=== PATIENT | male | born 1995 | race African-American/Black ===

== ENCOUNTER 2017-02-27 03:11 | Emergency (ER) | payer MEDICAID, OTHER ==
[~2017-02-27] VITALS: Ht 188 cm; Wt 72.0 kg
[~2017-02-27 03:11] MED LIST: CARB200T PO; KEPP500 PO
[2017-02-27 03:20] VITALS: BP 140/88
== END 2017-02-27 07:13 | disposition left against medical advice (07) ==
LOC: ER 03:11
DX: Z53.21 Procedure and treatment not carried out due to patient leaving prior to being seen by health care provider (principal)

== ENCOUNTER 2017-03-26 11:32 | Emergency (ER) | payer OTHER ==
[~2017-03-26] VITALS: Ht 165.1 cm; Wt 69.0 kg
[2017-03-26] MEDS ORDERED: SODIUM CHLORIDE 0.9% 1,000 ML IV ONE (14:00)
[2017-03-26 14:28] LABS: BASOPHILS % 0.7 % (0.0-2.0); HEMOGLOBIN. 12.1 g/dL (14.0-18.0); LYMPHOCYTES % 50.2 % (20.0-50.0); MEAN CORPUSCULAR HEMOGLOBIN 28.1 pg (28.0-32.0); MEAN PLATELET VOLUME 8.4 fl (7.4-10.4); MONOCYTES % 12.4 % (2.0-8.0); NEUTROPHILS % 34.7 % (40.0-76.0); PLATELET 168 x1000/uL (130-400); RED BLOOD CELL COUNT 4.31 mill/uL (4.7-6.1); RED CELL DISTRIBUTION WIDTH 15.1 % (11.6-14.6)
[2017-03-26 14:41] LABS: CARBON DIOXIDE 32 mEq/L (21-32); CHLORIDE 106 mEq/L (98-107)
[2017-03-26 15:08] LABS: CLARITY URINE CLOUDY (CLEAR); COLOR URINE YELLOW (YELLOW); GLUCOSE URINE NEGATIVE (NEGATIVE); KETONES URINE NEGATIVE (NEGATIVE); LEUKOCYTE ESTERASE URINE NEGATIVE (NEGATIVE); NITRITE URINE NEGATIVE (NEGATIVE); OCCULT BLOOD URINE NEGATIVE (NEGATIVE); PROTEIN URINE NEGATIVE (NEGATIVE); SPECIFIC GRAVITY URINE 1.022 (1.005-1.030)
[2017-03-26 15:20] LABS: *AMPHETAMINES SCREEN URINE NEGATIVE (NEGATIVE); *BARBITURATES SCREEN URINE NEGATIVE (NEGATIVE); *BENZODIAZEPINES SCREEN URINE NEGATIVE (NEGATIVE); *COCAINE SCREEN URINE NEGATIVE (NEGATIVE); CANNABINOID URINE SCREEN PRESUMTIVE POSITIVE (NEGATIVE); METHADONE URINE SCREEN NEGATIVE (NEGATIVE); OPIATES URINE SCREEN NEGATIVE (NEGATIVE); PHENCYCLIDINE URINE SCREEN NEGATIVE (NEGATIVE)
[2017-03-26 17:10] VITALS: BP 122/81
== END 2017-03-26 17:13 | disposition home or self-care (01) ==
LOC: ER 13:34
DX: R55 Syncope and collapse (principal); G40.909 Epilepsy, unspecified, not intractable, without status epilepticus; I10 Essential (primary) hypertension; E78.00 Pure hypercholesterolemia, unspecified; F17.210 Nicotine dependence, cigarettes, uncomplicated; Z90.49 Acquired absence of other specified parts of digestive tract; Z98.890 Other specified postprocedural states
CPT/HCPCS: 36415; 80048; 80305; 81001; 83735; 85025; 93005; 96360; 99284; J7030

== ENCOUNTER 2017-07-23 12:04 | Emergency (ER) | payer OTHER ==
[~2017-07-23] VITALS: Ht 182.9 cm; Wt 68.0 kg
[2017-07-23 13:54] VITALS: BP 142/92
[2017-07-23] MEDS ORDERED: LEVETIRACETAM 500MG TABLET PO ONE (14:30)
== END 2017-07-23 15:06 | disposition home or self-care (01) ==
LOC: ER 12:47
DX: Z76.0 Encounter for issue of repeat prescription (principal); G40.909 Epilepsy, unspecified, not intractable, without status epilepticus; R03.0 Elevated blood-pressure reading, without diagnosis of hypertension; F12.90 Cannabis use, unspecified, uncomplicated; Z90.89 Acquired absence of other organs; Z90.49 Acquired absence of other specified parts of digestive tract
CPT/HCPCS: 99283

== ENCOUNTER 2018-03-31 08:27 | Emergency (ER) | payer OTHER ==
[~2018-03-31] VITALS: Ht 177.8 cm; Wt 75.0 kg
[2018-03-31] MEDS ORDERED: LEVETIRACETAM 1000MG/100ML 100 ML IV ONE (09:00)
[2018-03-31 10:17] LABS: BASOPHILS % 0.3 % (0.0-2.0); EOSINOPHILS % 0.1 % (0.0-5.0); HEMATOCRIT. 43.3 % (42.0-52.0); HEMOGLOBIN. 13.8 g/dL (14.0-18.0); LYMPHOCYTES % 14.5 % (20.0-50.0); MEAN CORPUSCULAR HEMOGLOBIN 28.3 pg (28.0-32.0); MEAN CORPUSCULAR VOLUME 88.8 fL (80.0-94.0); MEAN PLATELET VOLUME 8.4 fl (7.4-10.4); MONOCYTES % 3.2 % (2.0-8.0); NEUTROPHILS % 81.9 % (40.0-76.0); PLATELET 199 x1000/uL (130-400); RED BLOOD CELL COUNT 4.88 mill/uL (4.7-6.1); RED CELL DISTRIBUTION WIDTH 14.4 % (11.6-14.6)
[2018-03-31 10:21] LABS: CLARITY URINE CLEAR (CLEAR); COLOR URINE YELLOW (YELLOW); KETONES URINE TRACE (NEGATIVE); LEUKOCYTE ESTERASE URINE NEGATIVE (NEGATIVE); NITRITE URINE NEGATIVE (NEGATIVE); OCCULT BLOOD URINE 1+ (NEGATIVE); PROTEIN URINE 1+ (NEGATIVE); SPECIFIC GRAVITY URINE 1.013 (1.005-1.030); UROBILINOGEN URINE 0.2 E.U./dL (0.2-1.0)
[2018-03-31 10:21] LABS: CHLORIDE 102 mEq/L (98-107)
[2018-03-31 10:25] LABS: ETHANOL BLOOD < 10 mg/dL
[2018-03-31 10:28] LABS: CARBAMAZEPINE 1.3 ug/mL (4-12)
[2018-03-31] MEDS ORDERED: CARBAMAZEPINE 200MG TABLET PO ONE (10:45)
[2018-03-31 11:44] VITALS: BP 110/62
== END 2018-03-31 11:46 | disposition home or self-care (01) ==
LOC: ER 08:27
DX: G40.909 Epilepsy, unspecified, not intractable, without status epilepticus (principal); F12.90 Cannabis use, unspecified, uncomplicated
CPT/HCPCS: 36415; 80053; 80156; 81003; 85025; 96365; 99284; G0482; J1953

== ENCOUNTER 2022-12-25 12:34 | Inpatient (IN) | payer OTHER ==
[~2022-12-25] VITALS: Ht 180.3 cm; Wt 59.0 kg
[2022-12-25] MEDS ORDERED: TETANUS, DIPHTHERIA, PERTUSSIS VAC/PF 0.5ML (>10YR OLD) IM ONE (13:00)
[2022-12-25] MEDS ORDERED: KETOROLAC 30MG/ML VIAL IV ONE (13:00)
[2022-12-25] MEDS ORDERED: CEFAZOLIN 1000MG PREMIX 50 ML IV ONE (13:00)
[2022-12-25] MEDS ORDERED: FENTANYL CITRATE/PF 50MCG/ML 2ML VIAL IV ONE (15:15)
[2022-12-25] MEDS ORDERED: POLYMYXIN B SULFATE 500000 UNITS/VIAL ONE ×2 (15:39→16:32)
[2022-12-25] MEDS ORDERED: VANCOMYCIN HCL 1 GM/VIAL ONE ×2 (15:39→16:33)
[2022-12-25] MEDS ORDERED: BUPIVACAINE HCL/PF 0.5% (5MG/ML) 10ML ONE ×2 (15:40→16:33)
[2022-12-25] MEDS ORDERED: LIDOCAINE HCL 1% 10 MG/ML 10ML VIAL ONE ×2 (15:40→16:33)
[2022-12-25 15:54] LABS: BASOPHILS % 0.2 % (0.0-2.0); HEMATOCRIT. 39.8 % (42.0-52.0); HEMOGLOBIN. 13.3 g/dL (14.0-18.0); MEAN CORPUSCULAR HEMOGLOBIN 29.8 pg (28.0-32.0); MEAN CORPUSCULAR VOLUME 89.3 fL (80.0-94.0); MONOCYTES % 4.5 % (2.0-8.0); NEUTROPHILS % 84.3 % (40.0-76.0); PLATELET 166 x1000/uL (130-400); RED BLOOD CELL COUNT 4.46 mill/uL (4.7-6.1); RED CELL DISTRIBUTION WIDTH 14.1 % (11.6-14.6)
[2022-12-25 15:58] LABS: CHLORIDE 109 mEq/L (98-107)
[2022-12-25 16:02] LABS: INR 1.2; PROTHROMBIN TIME 12.9 sec (9.6-11.0)
[2022-12-25 16:07] LABS: ETHANOL BLOOD < 10 mg/dL (-10)
[2022-12-25] MEDS ORDERED: ONDANSETRON HCL 4MG/2ML INJ IV PRN ×2 (16:45→17:45)
[2022-12-25] MEDS ORDERED: ACETAMINOPHEN 325MG TABLET PO PRN (16:45)
[2022-12-25] MEDS ORDERED: FENTANYL CITRATE/PF 50MCG/ML 2ML VIAL ONE (17:04)
[2022-12-25] MEDS ORDERED: PROPOFOL 200MG/20ML VIAL IV ONE (17:04)
[2022-12-25] MEDS ORDERED: MIDAZOLAM HCL 2 MG/2 ML VIAL ONE (17:04)
[2022-12-25] MEDS ORDERED: SUCCINYLCHOLINE CHLORIDE 200MG/10ML IV ONE (17:24)
[2022-12-25] MEDS ORDERED: ONDANSETRON HCL 4MG/2ML INJ ONE (17:28)
[2022-12-25] MEDS ORDERED: LEVETIRACETAM 1000MG PREMIX 100 ML IV NR (17:30)
[2022-12-25] MEDS ORDERED: KETOROLAC 30MG/ML VIAL ONE (17:41)
[2022-12-25] MEDS ORDERED: HYDROMORPHONE HCL/PF 2MG/ML CPJ IV PRN ×2 (17:45→23:15)
[2022-12-25] MEDS ORDERED: MEPERIDINE HCL/PF 25MG/ML CPJ IV PRN (17:45)
[2022-12-25] MEDS ORDERED: FENTANYL CITRATE/PF 50MCG/ML 2ML VIAL IV PRN (17:45)
[2022-12-25 20:00] VITALS: BP 126/79
[2022-12-25] MEDS ORDERED: LEVETIRACETAM 500MG TABLET PO NR (23:15)
[2022-12-25] MEDS ORDERED: NALOXONE HCL 0.4MG/ML VIAL IV PRN (23:15)
[2022-12-26] VITALS: BP 132/68
[2022-12-26] MEDS: CEFAZOLIN 1000MG PREMIX 50 ML IV SCH ×2 (01:21→10:50)
[2022-12-26 03:51] VITALS: BP 126/79
[2022-12-26 04:00] VITALS: BP 124/72
[2022-12-26] MEDS: HYDROMORPHONE HCL/PF 2MG/ML CPJ IV PRN ×2 (07:00→12:28)
[2022-12-26] MEDS ORDERED: CARBAMAZEPINE 200MG TABLET PO SCH (07:50)
[2022-12-26] MEDS ORDERED: LEVETIRACETAM 500MG TABLET PO SCH (09:00)
[2022-12-26] MEDS ORDERED: DOCUSATE SODIUM 100MG CAPSULE PO PRN (10:15)
[2022-12-26] MEDS ORDERED: ACETAMINOPHEN 325MG TABLET PO PRN ×2 (10:15)
[2022-12-26] MEDS ORDERED: ONDANSETRON HCL 4MG/2ML INJ IV PRN (10:15)
[2022-12-26 16:52] VITALS: BP 98/64
[2022-12-26 17:04] VITALS: BP 98/64
[2022-12-26 17:04] LABS: BASOPHILS % 0.1 % (0.0-2.0); EOSINOPHILS % 0.8 % (0.0-5.0); HEMATOCRIT. 38.3 % (42.0-52.0); HEMOGLOBIN. 12.7 g/dL (14.0-18.0); LYMPHOCYTES % 37.3 % (20.0-50.0); MEAN CORPUSCULAR HEMOGLOBIN 29.6 pg (28.0-32.0); MEAN CORPUSCULAR VOLUME 89.5 fL (80.0-94.0); MEAN PLATELET VOLUME 8.5 fl (7.4-10.4); MONOCYTES % 10.5 % (2.0-8.0); NEUTROPHILS % 51.3 % (40.0-76.0); PLATELET 158 x1000/uL (130-400); RED BLOOD CELL COUNT 4.28 mill/uL (4.7-6.1); RED CELL DISTRIBUTION WIDTH 13.8 % (11.6-14.6)
[2022-12-26 17:14] LABS: CHLORIDE 105 mEq/L (98-107)
[2022-12-26] MEDS ORDERED: HYDROCODONE/ACETAMINOPHEN 10/325MG TABLET PO NR (19:00)
[2022-12-26 20:00] VITALS: BP 123/81
== END 2022-12-26 20:55 | disposition home health service (06) | DRG 950 ==
LOC: ER 12:34 → 7EST 16:00 → 6EST 19:20 → ENRESERV 20:08
PROVIDERS: ADMIT Internal Medicine; ATTEND Internal Medicine
PROC: 0SSMXZZ Reposition Right Metatarsal-Phalangeal Joint, External Approach (ICD-10-PCS; principal; 2022-12-25)
PROC: 0QDN0ZZ Extraction of Right Metatarsal, Open Approach (ICD-10-PCS; 2022-12-25)
DX: S93.12 Dislocation of metatarsophalangeal joint (principal); R56.9 Unspecified convulsions; S91.311A Laceration without foreign body, right foot, initial encounter; S92.211A Displaced fracture of cuboid bone of right foot, initial encounter for closed fracture; S92.341A Displaced fracture of fourth metatarsal bone, right foot, initial encounter for closed fracture; S92.331A Displaced fracture of third metatarsal bone, right foot, initial encounter for closed fracture; V86.56XA Driver of dirt bike or motor/cross bike injured in nontraffic accident, initial encounter; Y93.89 Activity, other specified; Y92.89 Other specified places as the place of occurrence of the external cause; Y99.8 Other external cause status
CPT/HCPCS: 36415; 73610; 73620; 73630; 76000; 80048; 80053; 80320; 85025; 86850; 86900; 90715; 97116; 97162; 99291; J0330; J0690; J1170; J1885; J1953; J2250; J2405; J2704; J3010; J3370; J3490; G0480